=== PATIENT | female | born 1945 | race Asian ===

== ENCOUNTER 2018-02-05 04:54 | Emergency (ER) | payer OTHER ==
[~2018-02-05] VITALS: Ht 157.5 cm; Wt 54.4 kg
[2018-02-05] MEDS ORDERED: SIMVASTATIN5 MG ORAL (05:07)
--- NOTE | 2018-02-05 05:23 | Emergency Room Report ---
History of Present Illness General Chief Complaint: General Complaint Source: Patient Present Illness HPI Is a 72-year-old female with a history of breast cancer 20 years ago. She said is in remission. She does not have any other medical problem. She presents with chief complaint of feeling stressed and unable to sleep. Also with generalized body pain. This been ongoing for several months but worse in the last week. Only sleeping about 3 hours a night. She said she felt very stressed wearing bowel health, financial, housing issue. Denies suicidal thoughts homicidal thought. Nothing made it better. Nothing made it worse. Generalized body pain. Has not seen her doctor for this. No chest pain. Allergies: Coded Allergies: No Known Allergies (Unverified , 02/05/18) Patient History Past Medical History: see triage record, old chart reviewed, other - Breast cancer Past Surgical History: other Pertinent Family History: none Social History: Denies: smoking Last Menstrual Period: 3 decades ago Now: No Immunizations: other Reviewed Nursing Documentation: PMH: Agreed; PSxH: Agreed Nursing Documentation-PMH Hx Cancer: Yes - right breast ca Review of Systems Constitutional: Reports: weakness Eye: Denies: eye pain, blurred vision ENT: Denies: ear pain, nose congestion, throat swelling Respiratory: Denies: cough, shortness of breath Cardiovascular: Denies: chest pain, palpitations Gastrointestinal: Denies: abdominal pain, diarrhea, nausea, vomiting Musculoskeletal: Reports: muscle pain, muscle stiffness; Denies: back pain, joint pain Skin: Denies: rash Neurological: Denies: headache, numbness Endocrine: Denies: increased thirst, increased urine Hematologic/Lymphatic: Denies: easy bruising All Other Systems: negative except mentioned in HPI Physical Exam Vital Signs Date Time Temp Pulse Resp B/P (MAP) Pulse Ox O2 Delivery O2 Flow Rate FiO2 02/05/18 04:55 97.2 57 18 126/73 100 Room Air vitals normal Sp02 EP Interpretation: reviewed, normal General Appearance: well appearing, no apparent distress, alert Head: normocephalic, atraumatic Eyes: bilateral eye PERRL, bilateral eye EOMI ENT: hearing grossly normal, normal pharynx Neck: full range of motion, supple, no meningismus Respiratory: chest non-tender, lungs clear, normal breath sounds Cardiovascular #1: regular rate, rhythm, no murmur Gastrointestinal: normal bowel sounds, non tender, no mass, no organomegaly, no bruit, non-distended Musculoskeletal: back normal, gait/station normal, normal range of motion Psychiatric: anxious - Crying Skin: warm/dry Medical Decision Making Diagnostic Impression: Primary Impression: Stress disorder, acute Additional Impression: UTI (urinary tract infection) Qualified Codes: N30.00 - Acute cystitis without hematuria ER Course Patient with somatizations secondary to stress. No evidence of ACS, PE, dissection to name a few. She does have pyuria. She does complain of increased urination. We'll go ahead and treat for possible UTI. She sleeping comfortably after Ativan. Lab Results Impression labs unremarkable Last Vital Signs Date Time Temp Pulse Resp B/P (MAP) Pulse Ox O2 Delivery O2 Flow Rate FiO2 02/05/18 04:55 97.2 57 18 126/73 100 Room Air Status: improved Disposition: HOME, SELF-CARE Condition: Stable Scripts Lorazepam* (ATIVAN*) 0.5 Mg Tablet 0.5 MG ORAL THREE TIMES A DAY, #20 TAB Prov: Roberto Carlos Giordano MD 02/05/18 Cephalexin* (KEFLEX*) 500 Mg Capsule 500 MG ORAL TID, #21 CAP Prov: Roberto Carlos Giordano MD 02/05/18 Additional Instructions: Follow-up your doctor within a week. Return if symptom worsen. You may benefit from referral to see a psychologist or psychiatrist. Roberto Carlos Giordano MD Feb 05, 2018 05:22
[2018-02-05 05:24] VITALS: BP 126/73
[2018-02-05] MEDS ORDERED: LORazepam Inj 2mg/ml 1ml IV ONE (05:30)
[2018-02-05 05:43] LABS: APPEARANCE,URINE CLEAR; BILIRUBIN, URINE NEGATIVE (NEGATIVE); COLOR,URINE PALE YELLOW; GLUCOSE, URINE (UA) NEGATIVE (NEGATIVE); KETONES,URINE NEGATIVE (NEGATIVE); LEUKOCYTE ESTERASE ,URINE 3+ (NEGATIVE); NITRITE,URINE NEGATIVE (NEGATIVE); PH,URINE 8 (4.5-8.0); PROTEIN,URINE NEGATIVE (NEGATIVE); UROBILINOGEN,URINE NORMAL MG/DL (0.0-1.0)
[2018-02-05 05:49] LABS: BASOPHILS % (AUTO) 0.9 % (0.0-2.0); EOSINOPHILS % (AUTO) 0.6 % (0.0-3.0); HEMATOCRIT 41.7 % (37.0-47.0); HEMOGLOBIN 14.8 G/DL (12.0-16.0); LYMPHOCYTES % (AUTO) 33.5 % (20.0-45.0); MEAN CORPUSCULAR VOLUME 92 FL (80-99); MONOCYTES % (AUTO) 9.2 % (1.0-10.0); NEUTROPHILS % (AUTO) 55.8 % (45.0-75.0); PLATELET COUNT 186 K/UL (150-450); RED BLOOD COUNT 4.56 M/UL (4.20-5.40); RED CELL DISTRIBUTION WIDTH 10.1 % (11.6-14.8); WHITE BLOOD COUNT 3.5 K/UL (4.8-10.8)
[2018-02-05 05:56] VITALS: BP 134/65
[2018-02-05 06:01] LABS: ANION GAP 9 mmol/L (5-15); BLOOD UREA NITROGEN 19 mg/dL (7-18); CALCIUM 8.6 MG/DL (8.5-10.1); CARBON DIOXIDE 28 MMOL/L (21-32); CHLORIDE 105 MMOL/L (98-107); CREATININE 0.8 MG/DL (0.55-1.30); POTASSIUM 3.3 MMOL/L (3.5-5.1); SODIUM 142 MMOL/L (136-145)
[2018-02-05] MEDS ORDERED: ATIVAN0.5 MG ORAL (06:13)
[2018-02-05] MEDS ORDERED: CEPHALEXIN500 MG ORAL (06:13)
[2018-02-05 06:22] VITALS: BP 134/65
== END 2018-02-05 06:29 | disposition home or self-care (01) ==
LOC: EDBD 04:54 → EMR 05:24
DX: F43.9 Reaction to severe stress, unspecified (principal); N30.00 Acute cystitis without hematuria; Z85.3 Personal history of malignant neoplasm of breast
CPT/HCPCS: 36415; 80048; 81001; 85025; 96374; 99284